=== PATIENT | female | born 1935 | race Caucasian/White ===

== ENCOUNTER 2019-01-09 14:19 | Observation (INO) | payer MEDICARE, OTHER ==
[~2019-01-09] VITALS: Ht 160 cm; Wt 89.8 kg
[~2019-01-09 14:19] MED LIST: ULTRAM50 MG PO; ZITHROMAX TRI-500 MG PO
--- OUTSIDE RECORDS SUMMARY | 2019-01-09 14:22 | XMS REPORT | Continuity of Care Document ---
Author Author [facility] Interface Address Unknown Phone Unavailable Problems Problem Status Onset Date Classification Date Reported Comments Source R06.02 Active 08/13/2017 [facility] CHEST PAIN Active 04/08/2017 [facility] ACUTE CHEST PAIN Active 04/08/2017 [facility] 726.72 TENDINITIS, TIBIALIS Active 04/16/2015 [facility] Hyperlipidemia Resolved Problem 08/16/2017 [facility] Hypothyroidism Resolved Problem 08/16/2017 [facility] Lung cancer<sup>1</sup> Resolved Problem 08/16/2017 [facility] Depression Resolved Problem 08/16/2017 [facility] TIBIALIS TENDINITIS Active [facility] CHEST PAIN, UNSPECIFIED Active [facility] SHORTNESS OF BREATH Active [facility] Medications Medication Details Route Status Patient Instructions Ordering Provider Order Date Source multivitamin with minerals 1 tab, Route: PO, Drug Form: TAB, Dosing Weight 89.545, kg, Daily, Start date: 04/09/17 9:00:00 CDT, Duration: 30 day, Stop date: 05/08/17 9:00:00 CDTNotes: (Same as:Thera-M, Theragran-M) WASTE: F/P - Black; E - Municipal Trash Bin Give with food. Inactive 04/09/2017 [facility] Cymbalta 60 mg, 2 cap, Route: PO, Drug form: DRC, Daily, Dosing Weight 89.545, kg, Start date: 04/09/17 9:00:00 CDT, Duration: 30 day, Stop date: 05/08/17 9:00:00 CDTNotes: (Same as: Cymbalta) (Do Not Crush) Inactive 04/09/2017 [facility] Thyroxine 150 microgram, 1 tab, Route: PO, Drug form: TAB, Q630AM, Dosing Weight 89.545, kg, Start date: 04/09/17 6:30:00 CDT, Duration: 30 day, Stop date: 05/08/17 6:30:00 CDTNotes: Take 1 hour before or 2 hours after meal; Enteral feeds may interefere with the absorption of this medication. (Same as: Levothroid) Inactive 04/09/2017 [facility] atorvastatin 20 mg, 2 tab, Route: PO, Drug form: TAB, Bedtime, Dosing Weight 89.545, kg, Start date: 04/08/17 21:00:00 CDT, Duration: 30 day, Stop date: 05/07/17 21:00:00 CDTNotes: (Same As: Lipitor) No Longer Active 04/09/2017 [facility] Saline Flush 0.9% 10 ml, Route: IVP, Drug Form: INJ, Dosing Weight 89.545, kg, Q12H, Start date: 04/08/17 21:00:00 CDT, Duration: 30 day, Stop date: 05/08/17 9:00:00 CDTNotes: (Same as: BD Posiflush) No Longer Active 04/09/2017 [facility] multivitamin with minerals 1 tab, PO, Daily, 0 Refill(s) Active 04/08/2017 [facility] aspirin 81 mg tablet, enteric coated 81 mg=1 tab, PO, Daily, # 90 tab, 3 Refill(s) Active 04/08/2017 [facility] Ventolin HFA 90 mcg/inh inhalation aerosol with adapter 2 puff, Route: INHALATION, Drug Form: AERO/A, Dosing Weight 89.545, kg, QID, PRN Wheezing, Start date: 04/08/17 18:01:00 CDT, Duration: 30 day, Stop date: 05/08/17 18:00:00 CDTNotes: Same as: Ventolin HFA WASTE: Aerosol - Return to Pharmacy No Longer Active 04/08/2017 [facility] Saline Flush 0.9% 10 ml, Route: IVP, Drug Form: INJ, Dosing Weight 89.545, kg, PRN, PRN Line Flush, Start date: 04/08/17 17:35:00 CDT, Duration: 30 day, Stop date: 05/08/17 17:34:00 CDT Inactive 04/08/2017 [facility] Nitroglycerin 0.4 mg, 1 tab, Route: SL, Drug form: TAB, Q5Min, Dosing Weight 89.545, kg, PRN Chest Pain, Start date: 04/08/17 17:35:00 CDT, Duration: 3 doses or times, Stop date: Limited # of timesNotes: (Same as: Nitroquick, Nitrostat) "Do Not Crush" Sublingual tablet No Longer Active 04/08/2017 [facility] Ventolin HFA 90 mcg/inh inhalation aerosol with adapter 2 puff, INHALATION, QID, PRN as needed for wheezing, 0 Refill(s) Active 04/08/2017 [facility] multivitamin with minerals 1 tab, PO, Daily, 0 Refill(s) Inactive 04/08/2017 [facility] multivitamin with minerals 1 tab, PO, Daily, 0 Refill(s) Inactive 04/08/2017 [facility] levothyroxine 150 mcg (0.15 mg) oral tablet 150 microgram=1 tab, PO, Daily, 0 Refill(s) Active 04/08/2017 [facility] Beclomethasone Dipropionate 0.08 MG/ACTUAT Metered Dose Nasal [place] [Qnasl] 2 spray, NASAL, Daily, 0 Refill(s) Inactive 04/08/2017 [facility] duloxetine 60 MG Enteric Coated Capsule [Cymbalta] 60 mg=1 cap, PO, Daily, 0 Refill(s) Active 04/08/2017 [facility] atorvastatin 20 mg oral tablet 20 mg=1 tab, PO, Bedtime, 0 Refill(s) Active 04/08/2017 [facility] Hydralazine 10 mg, 0.5 mL, Route: IV, Drug form: INJ, ONCE, Dosing Weight 89.545, kg, Start date: 04/08/17 13:53:00 CDT, Stop date: 04/08/17 13:53:00 CDTNotes: (Same as: Apresoline) Push over 5 minutes Inactive 04/08/2017 [facility] Saline Flush 0.9% 10 mL, Route: IVP, Drug Form: INJ, Dosing Weight 89.545, kg, PRN, PRN Line Flush, Start date: 04/08/17 13:08:00 CDT, Duration: 30 day, Stop date: 05/08/17 13:07:00 CDTNotes: (Same as: BD Posiflush) Inactive 04/08/2017 [facility] Allergies, Adverse Reactions, Alerts Substance Category Reaction Severity Reaction type Status Date Reported Comments Source morphine Assertion Drug allergy Active [facility] sulfa drugs Assertion Drug allergy Active [facility] Immunizations Immunization Date Given Site Status Last Updated Comments Source Results Order Name Results Value Reference Range Date Interpretation Comments Source Chest 2 views DX Chest 2 views DX Clinical Indication: - R06.02 Shortness of breath Comparison: 04/08/2017 FINDINGS: PA and lateral views the chest are submitted for interpretation. Postsurgical changes are noted in the right lung. The lungs are otherwise clear and there are no effusions. There is no visible pneumothorax. There is mild eventration of the posterior right. The cardiomediastinal contours are otherwise within normal limits. There are no clinically significant osseous abnormalities noted. IMPRESSION: 1. No radiographic evidence of acute cardiopulmonary process. SL: [id number] 08/13/2017 - - Read by: Edgar Martin MD Dictated Date/time: 08/13/17 10:21 Electronically Signed by: Edgar Martin MD 08/13/17 10:25 FINAL REPORT [facility] CARDIAC ENZYMES Troponin-I null 0.00 - 0.40 04/09/2017 [facility] CARDIAC ENZYMES Total CK 59 unit/L 12 - 191 04/09/2017 [facility] CARDIAC ENZYMES CK MB 1.6 ng/mL 0.5 - 3.6 04/09/2017 [facility] CARDIAC ENZYMES Troponin-I null 0.00 - 0.40 04/08/2017 [facility] CARDIAC ENZYMES Total CK 60 unit/L 12 - 191 04/08/2017 [facility] CARDIAC ENZYMES CK MB 2.0 ng/mL 0.5 - 3.6 04/08/2017 [facility] CARDIAC ENZYMES CK MB 2.3 ng/mL 0.5 - 3.6 04/08/2017 [facility] CARDIAC ENZYMES Troponin-I null 0.00 - 0.40 04/08/2017 [facility] CARDIAC ENZYMES Total CK 81 unit/L 12 - 191 04/08/2017 [facility] CARDIAC ENZYMES BNP 233 pg/mL <=100 pg/mL 04/08/2017 [facility] CARDIAC ENZYMES CK MB Index 2.8 0.0 - 2.5 04/08/2017 [facility] CHEM PANEL A/G Ratio 0.9 0.7 - 1.6 04/08/2017 [facility] CHEM PANEL eGFR 85 mL/min/1.73m2 04/08/2017 Result Comment: The eGFR is calculated using the CKD-EPI formula. In most young, healthy individuals the eGFR will be >90 mL/min/1.73m2. The eGFR declines with age. An eGFR of 60-89 may be normal in some populations, particularly the elderly, for whom the CKD-EPI formula has not been extensively validated. Use of the eGFR is not recommended in the following populations: Individuals with unstable creatinine concentrations, including patients and those with serious co-morbid conditions. Patients with extremes in muscle mass or diet. The data above are obtained from the National Kidney Disease Education Program (NKDEP) which additionally recommends that when the eGFR is used in patients with extremes of body mass index for purposes of drug dosing, the eGFR should be multiplied by the estimated BMI. [facility] CHEM PANEL Globulin 3.5 g/dL 2.7 - 4.2 04/08/2017 [facility] CHEM PANEL B/C Ratio 36 6 - 25 04/08/2017 [facility] CHEM PANEL AGAP 10.7 meq/L 10.0 - 20.0 04/08/2017 [facility] CHEM PANEL Bili Total 0.5 mg/dL 0.2 - 1.3 04/08/2017 [facility] CHEM PANEL Chloride Lvl 104 meq/L 95 - 109 04/08/2017 [facility] CHEM PANEL Potassium Lvl 4.7 meq/L 3.5 - 5.1 04/08/2017 [facility] CHEM PANEL Sodium Lvl 140 meq/L 135 - 145 04/08/2017 [facility] CHEM PANEL Calcium Lvl 8.6 mg/dL 8.5 - 10.5 04/08/2017 [facility] CHEM PANEL CO2 30 meq/L 24 - 32 04/08/2017 [facility] CHEM PANEL ALT 21 unit/L 0 - 65 04/08/2017 [facility] CHEM PANEL Albumin Lvl 3.3 g/dL 3.5 - 5.0 04/08/2017 [facility]M PANEL Total Protein 6.8 g/dL 6.4 - 8.4 04/08/2017 [facility] CHEM PANEL Alk Phos 82 unit/L 39 - 136 04/08/2017 [facility] CHEM PANEL AST 21 unit/L 0 - 37 04/08/2017 [facility] CHEM PANEL Glucose Lvl 102 mg/dL 70 - 99 04/08/2017 [facility] CHEM PANEL BUN 21 mg/dL 7 - 22 04/08/2017 [facility] CHEM PANEL Creatinine Lvl 0.58 mg/dL 0.50 - 1.40 04/08/2017 [facility] RDW 14.3 % 11.5 - 14.5 04/08/2017 [facility] MCH 32.4 pg 27.0 - 31.0 04/08/2017 [facility] MCV 96.9 fL 80.0 - 98.0 04/08/2017 [facility] MPV 10.9 fL 7.4 - 10.4 04/08/2017 [facility] Platelet 130 K/CMM 133 - 450 04/08/2017 [facility] MCHC 33.4 g/dL 32.0 - 36.0 04/08/2017 [facility] WBC 7.6 K/CMM 3.7 - 10.4 04/08/2017 [facility] RBC 4.05 M/CMM 4.20 - 5.40 04/08/2017 [facility] Hgb 13.1 g/dL 12.0 - 16.0 04/08/2017 [facility] Hct 39.3 % 36.0 - 48.0 04/08/2017 [facility] Basophils 1.0 % 0.0 - 1.0 04/08/2017 [facility] Monocytes 11.1 % 2.0 - 12.0 04/08/2017 [facility] Eosinophils 1.2 % 0.0 - 4.0 04/08/2017 [facility] Lymphocytes 22.9 % 20.0 - 40.0 04/08/2017 [facility] Segs 63.8 % 45.0 - 75.0 04/08/2017 [facility] Lymphocytes # 1.7 K/CMM 1.0 - 5.5 04/08/2017 [facility] Monocytes # 0.8 K/CMM 0.0 - 0.8 04/08/2017 [facility] Eosinophils # 0.1 K/CMM 0.0 - 0.5 04/08/2017 [facility] Segs-Bands # 4.8 K/CMM 1.5 - 8.1 04/08/2017 [facility] Basophils # 0.1 K/CMM 0.0 - 0.2 04/08/2017 [facility] Chest 1view DX Chest 1view DX 1 VIEW CXR. PORTABLE EXAM 1:32 PM HISTORY: Chest pain this morning. Hypertensive. COMPARISON: 01/08/2008 chest x-ray. Patient has undergone chest surgery in the interval from the 2008 exam. The increased right apical and paramediastinal opacity noted today most likely reflects postoperative changes. Associated small amount of right hemithorax volume loss. The lungs are otherwise clear. Cardiac size normal. Bones intact with stable sclerotic opacity left humeral neck and head. IMPRESSION: Postoperative changes right apex and upper paramediastinal region. Otherwise normal exam. END OF IMPRESSION SL: [id number] 04/08/2017 - - Read by: Brock Martinez MD Dictated Date/time: 04/08/17 14:04 Electronically Signed by: Brock Martinez MD 04/08/17 14:06 FINAL REPORT [facility] Bone scan 3 phase NM Bone scan 3 phase NM Three-phase Bone Scan. COMPARISON: No priors CLINICAL HX: Tendinitis TECHNIQUE: 25 mCi of Technetium 99m MDP were administered intravenously and 3 phase bone scan performed. FINDINGS: The initial flow images and the blood pool images demonstrate relatively symmetric flow in both lower extremities in the region of the knees, ankle and foot. On the delayed images, no significant increase in tracer activity is visualized at the left knee. Post operative changes related to complete knee replacement are noted There is mild nonspecific increase in tracer activity noted in the region of right ankle and hindfoot. SL:13 04/21/2015 - - Read by: Ajay Kruger MD Dictated Date/time: 04/21/15 14:05 Electronically Signed by: Ajay Kruger MD 04/21/15 14:16 FINAL REPORT [facility] Vital Signs Vital Sign Value Date Comments Source Systolic (mm Hg) 147 04/09/2017 [facility] Diastolic (mm Hg) 69 04/09/2017 [facility] Respitory Rate 18 04/09/2017 [facility] Heart Rate 90 04/09/2017 [facility] Temperature Oral (F) 98.2 F 04/09/2017 [facility] Respitory Rate 19 04/08/2017 [facility] Temperature Oral (F) 97.8 F 04/08/2017 [facility] Systolic (mm Hg) 175 04/08/2017 [facility] Diastolic (mm Hg) 63 04/08/2017 [facility] Heart Rate 85 04/08/2017 [facility] Respitory Rate 18 04/08/2017 [facility] Systolic (mm Hg) 179 04/08/2017 [facility] Diastolic (mm Hg) 69 04/08/2017 [facility] BMI Calculated 33.89 04/08/2017 [facility] Height 162.56 cm 04/08/2017 [facility] Temperature Oral (F) 98.0 F 04/08/2017 [facility] Weight 89.545 04/08/2017 [facility] Heart Rate 72 04/08/2017 [facility] Encounters Location Location Details Encounter Type Encounter Number Reason For Visit Attending Provider ADM Date DC Date Status Source [facility] Out[facility] [id number] Harshad Mcqueen 04/21/2015 04/22/2015 [facility] Observation [id number] Ethan Bradley 04/08/2017 04/09/2017 [facility] Outpatient [id number] Albert Garcia 08/13/2017 08/13/2017 [facility] Outpatient [id number] Albert Garcia 08/13/2017 08/14/2017 [facility] Procedures Procedure Code Date Perfomer Comments Source Hysterectomy [id number] [facility] Lung operation [id number] [facility] Total knee replacement<sup>1</sup> [id number] Lt. Knee [facility]
--- OUTSIDE RECORDS SUMMARY | 2019-01-09 14:22 | XMS REPORT | Summary of Care ---
Author Author [facility] Organization [facility] Address Unknown Phone Unavailable Encounter HQ Rosalba(MIRELLA) [id number] Date(s): 04/08/17 - 04/08/17 [facility] [address] [place] [address]- [phone] Discharge Disposition: Home or Self Care Attending Physician: Ethan Bradley MD Admitting Physician: Ethan Bradley MD Vital Signs 1 2 3 Most recent to oldest [Reference Range]: 162.56 cm (04/08/17 1:01 PM) Height 98.2 DegF (04/08/17 8:07 PM) 97.8 DegF (04/08/17 4:22 PM) 98.0 DegF (04/08/17 1:01 PM) Temperature Oral [96.4-99.1 DegF] 147/69 mmHg *HI* (04/08/17 8:07 PM) 175/63 mmHg *HI* (04/08/17 4:22 PM) 179/69 mmHg *HI* (04/08/17 3:20 PM) Blood Pressure [90-140/60-90 mmHg] 18 BRMIN (04/08/17 8:07 PM) 19 BRMIN (04/08/17 4:22 PM) 18 BRMIN (04/08/17 3:20 PM) Respiratory Rate [14-20 BRMIN] 90 bpm (04/08/17 8:07 PM) 85 bpm (04/08/17 4:22 PM) 72 bpm (04/08/17 1:01 PM) Peripheral Pulse Rate [60-100 bpm] 89.545 kg (04/08/17 1:01 PM) Weight 33.89 m2 (04/08/17 1:01 PM) Body Mass Index Problem List Condition Effective Dates Status Health Status Informant Hyperlipidemia(Confi Resolved rmed) Hypothyroidism(Confi Resolved rmed) Lung Resolved cancer(Confirmed)1 Depression(Confirmed Resolved ) 1Rt. Lung Allergies, Adverse Reactions, Alerts Substance Reaction Severity Status NKDA Active Medications aspirin 81 mg tablet, enteric coated 81 mg=1 tab, PO, Daily, # 90 tab, 3 Refill(s) Start Date: 04/08/17 Status: Ordered atorvastatin 20 mg, 2 tab, Route: PO, Drug form: TAB, Bedtime, Dosing Weight 89.545, kg, Star t date: 04/08/17 21:00:00 CDT, Duration: 30 day, Stop date: 05/07/17 21:00:00 CD T Notes: (Same As: Lipitor) Start Date: 04/08/17 Stop Date: 04/09/17 Status: Discontinued atorvastatin 20 mg oral tablet 20 mg=1 tab, PO, Bedtime, 0 Refill(s) Start Date: 04/08/17 Status: Ordered Cymbalta 60 mg, 2 cap, Route: PO, Drug form: DRC, Daily, Dosing Weight 89.545, kg, Start date: 04/09/17 9:00:00 CDT, Duration: 30 day, Stop date: 05/08/17 9:00:00 CDT Notes: (Same as: Cymbalta) (Do Not Crush) Start Date: 04/09/17 Stop Date: 04/09/17 Status: Canceled Cymbalta 60 mg oral delayed release capsule 60 mg=1 cap, PO, Daily, 0 Refill(s) Start Date: 04/08/17 Status: Ordered hydrALAZINE 10 mg, 0.5 mL, Route: IV, Drug form: INJ, ONCE, Dosing Weight 89.545, kg, Start date: 04/08/17 13:53:00 CDT, Stop date: 04/08/17 13:53:00 CDT Notes: (Same as: Apresoline)Push over 5 minutes Start Date: 04/08/17 Stop Date: 04/08/17 Status: Completed levothyroxine 150 microgram, 1 tab, Route: PO, Drug form: TAB, Q630AM, Dosing Weight 89.545, k g, Start date: 04/09/17 6:30:00 CDT, Duration: 30 day, Stop date: 05/08/17 6:30: 00 CDT Notes: Take 1 hour before or 2 hours after meal; Enteral feeds may interefere wi th the absorption of this medication. (Same as: Levothroid) Start Date: 04/09/17 Stop Date: 04/09/17 Status: Canceled levothyroxine 150 mcg (0.15 mg) oral tablet 150 microgram=1 tab, PO, Daily, 0 Refill(s) Start Date: 04/08/17 Status: Ordered multivitamin with minerals 1 tab, PO, Daily, 0 Refill(s) Start Date: 04/08/17 Stop Date: 04/08/17 Status: Discontinued multivitamin with minerals 1 tab, PO, Daily, 0 Refill(s) Start Date: 04/08/17 Stop Date: 04/08/17 Status: Discontinued multivitamin with minerals 1 tab, Route: PO, Drug Form: TAB, Dosing Weight 89.545, kg, Daily, Start date: 0 04/09/17 9:00:00 CDT, Duration: 30 day, Stop date: 05/08/17 9:00:00 CDT Notes: (Same as:Mariana-M Therabdias-M)WASTE: F/P - Black; E - Municipal Trash Bin Give with food. Start Date: 04/09/17 Stop Date: 04/09/17 Status: Canceled multivitamin with minerals 1 tab, PO, Daily, 0 Refill(s) Start Date: 04/08/17 Status: Ordered nitroglycerin SL Tab 0.4 mg, 1 tab, Route: SL, Drug form: TAB, Q5Min, Dosing Weight 89.545, kg, PRN C hest Pain, Start date: 04/08/17 17:35:00 CDT, Duration: 3 doses or times, Stop d ate: Limited # of times Notes: (Same as:Nitroquick, Nitrostat)"Do Not Crush" Sublingual tablet Start Date: 04/08/17 Stop Date: 04/09/17 Status: Discontinued Qnasl 80 mcg/inh nasal spray 2 spray, NASAL, Daily, 0 Refill(s) Start Date: 04/08/17 Stop Date: 04/08/17 Status: Discontinued Saline Flush 0.9% 10 mL, Route: IVP, Drug Form: INJ, Dosing Weight 89.545, kg, PRN, PRN Line Flush , Start date: 04/08/17 13:08:00 CDT, Duration: 30 day, Stop date: 05/08/17 13:07 :00 CDT Notes: (Same as: BD Posiflush) Start Date: 04/08/17 Stop Date: 04/08/17 Status: Discontinued Saline Flush 0.9% 10 ml, Route: IVP, Drug Form: INJ, Dosing Weight 89.545, kg, PRN, PRN Line Flush , Start date: 04/08/17 17:35:00 CDT, Duration: 30 day, Stop date: 05/08/17 17:34 :00 CDT Start Date: 04/08/17 Stop Date: 04/08/17 Status: Deleted Saline Flush 0.9% 10 ml, Route: IVP, Drug Form: INJ, Dosing Weight 89.545, kg, Q12H, Start date: 0 04/08/17 21:00:00 CDT, Duration: 30 day, Stop date: 05/08/17 9:00:00 CDT Notes: (Same as: BD Posiflush) Start Date: 04/08/17 Stop Date: 04/09/17 Status: Discontinued Ventolin HFA 90 mcg/inh inhalation aerosol with adapter 2 puff, Route: INHALATION, Drug Form: AERO/A, Dosing Weight 89.545, kg, QID, PRN Wheezing, Start date: 04/08/17 18:01:00 CDT, Duration: 30 day, Stop date: 05/08 18:00:00 CDT Notes: Same as: Ventolin HFAWASTE: Aerosol - Return to Pharmacy Start Date: 04/08/17 Stop Date: 04/09/17 Status: Discontinued Ventolin HFA 90 mcg/inh inhalation aerosol with adapter 2 puff, INHALATION, QID, PRN as needed for wheezing, 0 Refill(s) Start Date: 04/08/17 Status: Ordered Results ELECTROLYTES 1 2 3 Most recent to oldest [Reference Range]: 140 mEq/L (04/08/17 1:31 PM) Sodium Lvl [135-145 mEq/L] 4.7 mEq/L (04/08/17 1:31 PM) Potassium Lvl [3.5-5.1 mEq/L] 104 mEq/L (04/08/17 1:31 PM) Chloride Lvl [95-109 mEq/L] 30 mEq/L (04/08/17 1:31 PM) CO2 [24-32 mEq/L] 10.7 mEq/L (04/08/17 1:31 PM) AGAP [10.0-20.0 mEq/L] CHEM PANEL 1 2 3 Most recent to oldest [Reference Range]: 0.58 mg/dL (04/08/17 1:31 PM) Creatinine Lvl [0.50-1.40 mg/dL] 85 mL/min/1.73m2 1 *NA* (04/08/17 1:31 PM) eGFR 21 mg/dL (04/08/17 1:31 PM) BUN [7-22 mg/dL] 36 *HI* (04/08/17 1:31 PM) B/C Ratio [6-25] 102 mg/dL *HI* (04/08/17 1:31 PM) Glucose Lvl [70-99 mg/dL] 6.8 g/dL (04/08/17 1:31 PM) Total Protein [6.4-8.4 g/dL] 3.3 g/dL *LOW* (04/08/17 1:31 PM) Albumin Lvl [3.5-5.0 g/dL] 3.5 g/dL (04/08/17 1:31 PM) Globulin [2.7-4.2 g/dL] 0.9 (04/08/17 1:31 PM) A/G Ratio [0.7-1.6] 8.6 mg/dL (04/08/17 1:31 PM) Calcium Lvl [8.5-10.5 mg/dL] 21 unit/L (04/08/17 1:31 PM) ALT [0-65 unit/L] 21 unit/L (04/08/17 1:31 PM) AST [0-37 unit/L] 82 unit/L (04/08/17 1:31 PM) Alk Phos [39-136 unit/L] 0.5 mg/dL (04/08/17 1:31 PM) Bili Total [0.2-1.3 mg/dL] 1Result Comment: The eGFR is calculated using the [...] from the National Kidney Disease Education Program ( NKDEP) which additionally recommends that when the eGFR is used in patients with extremes of body mass index for purposes of drug dosing, the eGFR should be mul tiplied by the estimated BMI. CARDIAC ENZYMES 1 2 3 Most recent to oldest [Reference Range]: 59 unit/L (04/08/17 10:05 PM) 60 unit/L (04/08/17 6:13 PM) 81 unit/L (04/08/17 1:31 PM) Total CK [12-191 unit/L] 1.6 ng/mL (04/08/17 10:05 PM) 2.0 ng/mL (04/08/17 6:13 PM) 2.3 ng/mL (04/08/17 1:31 PM) CK MB [0.5-3.6 ng/mL] 2.8 *HI* (04/08/17 1:31 PM) CK MB Index [0.0-2.5] <0.02 ng/mL (04/08/17 10:05 PM) <0.02 ng/mL (04/08/17 6:13 PM) <0.02 ng/mL (04/08/17 1:31 PM) Troponin-I [0.00-0.40 ng/mL] 233 pg/mL *HI* (04/08/17 1:31 PM) BNP [<=100 pg/mL] HEMATOLOGY 1 2 3 Most recent to oldest [Reference Range]: 7.6 K/CMM (04/08/17 1:31 PM) WBC [3.7-10.4 K/CMM] 4.05 M/CMM *LOW* (04/08/17 1:31 PM) RBC [4.20-5.40 M/CMM] 13.1 g/dL (04/08/17 1:31 PM) Hgb [12.0-16.0 g/dL] 39.3 % (04/08/17 1:31 PM) Hct [36.0-48.0 %] 96.9 fL (04/08/17 1:31 PM) MCV [80.0-98.0 fL] 32.4 pg *HI* (04/08/17 1:31 PM) MCH [27.0-31.0 pg] 33.4 g/dL (04/08/17 1:31 PM) MCHC [32.0-36.0 g/dL] 14.3 % (04/08/17 1:31 PM) RDW [11.5-14.5 %] 130 K/CMM *LOW* (04/08/17 1:31 PM) Platelet [133-450 K/CMM] 10.9 fL *HI* (04/08/17 1:31 PM) MPV [7.4-10.4 fL] 63.8 % (04/08/17 1:31 PM) Segs [45.0-75.0 %] 22.9 % (04/08/17 1:31 PM) Lymphocytes [20.0-40.0 %] 11.1 % (04/08/17 1:31 PM) Monocytes [2.0-12.0 %] 1.2 % (04/08/17 1:31 PM) Eosinophils [0.0-4.0 %] 1.0 % (04/08/17 1:31 PM) Basophils [0.0-1.0 %] 4.8 K/CMM (04/08/17 1:31 PM) Segs-Bands # [1.5-8.1 K/CMM] 1.7 K/CMM (04/08/17 1:31 PM) Lymphocytes # [1.0-5.5 K/CMM] 0.8 K/CMM (04/08/17 1:31 PM) Monocytes # [0.0-0.8 K/CMM] 0.1 K/CMM (04/08/17 1:31 PM) Eosinophils # [0.0-0.5 K/CMM] 0.1 K/CMM (04/08/17 1:31 PM) Basophils # [0.0-0.2 K/CMM] Immunizations No data available for this section Procedures Procedure Date Related Diagnosis Body Site Hysterectomy Lung operation Total knee replacement1 1Lt. Knee Social History Social History Type Response Smoking Status Former smoker; Type: Cigarettes; Exposure to Tobacco Smoke None; Cigarette Smoking Last 365 Days No; Reg Smoking Cessation Counseling No Assessment and Plan Extracted from: Title: Clinical Document Author: Ethan Bradley MD Date: 04/08/17 [facility] Initial Cardiology H&P Note Chief Complaint: cp HPI: 82-year-old female with history of right lung cancer status post resection, hyperlipidemia, hypothyroidism, who comes to the hospital with chest pain. The pain lasted for 1 hour at home while she was playing a game on her computer. She currently has no chest pain right now. She was seen by her PCP over a week ago who said that she had plaque buildup and should make an appointment with her commercial litigation paralegal. Her first set of cardiac enzymes are normal in the ER. When she came to the ER her blood pressure was elevated up to 215 systolic. However family says she was wearing of a very tight blood pressure cuff at the time in the ER. Normally her blood pressures around 120s systolic at home. She does not take any blood pressure medication at home. In regards to her plaque buildup, it appears that she had a CT scan for surveillance of her lung cancer. It was possibly seen as coronary artery calcification on the CT scan. She has never had a stress test or echo done in the past. She has no exertional chest pain or shortness of breath. She is normally very active and likes to live independently. She drives back and forth from [place]. Regards her chest pain, she said it was a burning acid reflex type of pain which was happening while she was playing a can game on her computer. It lasted for about 1 hour and then went away. She was little concerned given she was told she had plaque buildup so she came to the ER here. She was given aspirin prior to arrival so no aspirin was given in the ER. She does not take aspirin on a daily basis. At home patient takes Lipitor 20 and Synthroid. REVIEW OF SYSTEMS: CONSTITUTIONAL: No fever. No chills. No dizziness. No weakness. EYES: No pain, erythema, or discharge. No blurring of vision. EAR, NOSE AND THROAT: No sore throat, URI symptoms. No epistaxis. No tinnitus. CARDIOVASCULAR: + chest pain. No palpitations. No lower extremity edema. RESPIRATORY: No shortness of breath, cough, pain with respiration, or pleuritic chest pain. No hemoptysis. No dyspnea. No paroxysmal nocturnal dyspnea. GASTROINTESTINAL: Normal appetite. No nausea, vomiting, diarrhea. No pain. No bloating. No melena. GENITOURINARY: No frequency, urgency, nocturia. No hematuria or dysuria. MUSCULOSKELETAL: No arthralgias or myalgias. INTEGUMENTARY: No swelling. No bruising. No contusions. No abrasions. No lymphangitis. NEUROLOGIC: No headache. No neck pain. No numbness or tingling of the extremities. No weakness. PSYCHIATRIC: No confusion. METABOLIC: No fatigue. No weakness. No history of thyroid, diabetes or adrenal problems. HEMATOLOGICAL: No bleeding. No petechiae. No bruising. ALLERGY: No asthma. No urticaria. PAST MEDICAL HISTORY: Lung cancer Hypothyroidism Depression Hyperlipidemia PAST SURGICAL HISTORY: Lung operation Hysterectomy Total knee replacement FAMILY HISTORY: No qualifying data available SOCIAL HISTORY: No tobacco, alcohol, or drug abuse MEDICATIONS: See inpatient medications below Allergies: NKDA VitalsTmp(F)[id number] 04/08 16:[id number]--- 04/08 15:20----[id number]--- 04/08 15:16----[id number]--- 04/08 14:59----[id number]--- 04/08 13:23----[id number]--- 24 Hr Tmax: 98.0F (36.67c) at 04/08 13:01Vital Signs are the last 5 in the past 48 hours. Gen: Alert, no apparent distress Neck: No carotid bruits, No JVD Lungs: CTAB Heart: Regular, s1 s2, +murmur Abd: Soft, nt, nd, +bs Ext: No edema, 2+ pulses distally Neuro: No focal deficits Skin: warm, moist Labs (Last four charted values) WBC 7.6(APR 08) Hgb 13.1(APR 08) Hct 39.3(APR 08) Plt L 130(APR 08) Na 140(APR 08) K 4.7(APR 08) CO2 30(APR 08) Cl 104(APR 08) Cr 0.58(APR 08) BUN 21(APR 08) Glucose Random H 102(APR 08) Ca 8.6(APR 08) Troponin <0.02(APR 08) CK MB 2.3(APR 08) Total CK 81(APR 08) Impression: Atypical chest pain Hyperlipidemia History of lung cancer Abnormal EKG Plan: Patient presents for hospital with atypical chest pain. However given her age, history of hyperlipidemia, female gender, and atypical symptoms, she does warrant further blood test in the hospital here. She will get 2 more sets of cardiac enzymes. If the 3 sets are normal, she can go home from a cardiology standpoint. A stress test was offered for the patient however she prefers to do it as an outpatient. We will get the stress test scheduled within the next 2 days in my office. She will need a Lexiscan nuclear stress test since the patient cannot go on a treadmill due to knee issues. An echocardiogram will also be performed in the office since she does have a murmur on exam. The plan discussed in detail with the patient. He was also discussed with her family. All questions were answered. She is in agreement the plan. 55 minutes was spent taking care of this patient and reviewing the chart as well as discussing the plan of care with the patient. Continuous Infusions: None Scheduled Meds (1): 04/08/17 sodium chloride (Saline Flush 0.9%) 10 ml IVP Q12H
--- OUTSIDE RECORDS SUMMARY | 2019-01-09 14:22 | XMS REPORT | Summary of Care ---
Author Author [facility] Organization [facility] Address Unknown Phone Unavailable Encounter HQ Rosalba(MIRELLA) [id number] Date(s): 08/13/17 - 08/13/17 [facility] [address] [place] [address]- Discharge Disposition: Home or Self Care Attending Physician: Albert Garcia MD Admitting Physician: Albert Garcia MD Vital Signs No data available for this section Problem List Condition Effective Dates Status Health Status Informant Hyperlipidemia(Confi Resolved rmed) Hypothyroidism(Confi Resolved rmed) Lung Resolved cancer(Confirmed)1 Depression(Confirmed Resolved ) 1Rt. Lung Allergies, Adverse Reactions, Alerts Substance Reaction Severity Status NKDA Active Medications No data available for this section Results No data available for this section Immunizations No data available for this section Procedures Procedure Date Related Diagnosis Body Site Hysterectomy Lung operation Total knee replacement1 1Lt. Knee Social History Social History Type Response Smoking Status Former smoker; Type: Cigarettes; Exposure to Tobacco Smoke None; Cigarette Smoking Last 365 Days No; Reg Smoking Cessation Counseling No Assessment and Plan No data available for this section
--- OUTSIDE RECORDS SUMMARY | 2019-01-09 14:22 | XMS REPORT | Summary of Care ---
Author Author [facility] Organization [facility] Address Unknown Phone Unavailable Encounter HQ Encntr_alias(FIN) [id number] Date(s): 04/21/15 - 04/21/15 [facility] [address] [place] [address]- Discharge Disposition: Home Attending Physician: Harshad Mcqueen MD Referring Physician: Harshad Mcqueen MD Vital Signs No data available for this section Problem List No data available for this section Allergies, Adverse Reactions, Alerts Substance Reaction Severity Status morphine Active sulfa drugs Active Medications No data available for this section Results No data available for this section Immunizations No data available for this section Procedures No data available for this section Social History Social History Type Response Assessment and Plan No data available for this section
--- OUTSIDE RECORDS SUMMARY | 2019-01-09 14:22 | XMS REPORT | Summary of Care ---
Author Author [facility] Organization [facility] Address Unknown Phone Unavailable Encounter HQ Rosalba(FIN) [id number] Date(s): 08/13/17 - 08/13/17 [facility] [address] [place] [address]- [phone] Attending Physician: Albert Garcia MD Admitting Physician: [...]
--- OUTSIDE RECORDS SUMMARY | 2019-01-09 14:22 | XMS REPORT | Clinical Summary ---
Author Author [facility] Organization [facility] Address Unknown Phone Unavailable Care Team Providers Care Planning Consultant Name Role Phone Hank Martin MD PCP Allergies Not on File Medications Not on file Active Problems Not on file Social History Date Tobacco Use Types Packs/Day Years Used Never Assessed Sex Assigned at Date Recorded Not on file Industry Job Start Date Occupation Not on file Not on file Not on file Travel End Travel History Travel Start No recent travel history available. Last Filed Vital Signs Not on file Plan of Treatment Health Maintenance Due Date Last Done Comments SHINGLES VACCINES (#1) 1983 65+ PNEUMOCOCCAL VACCINE 1998 (1 of 2 - PCV13) PNEUMOCOCCAL 1998 POLYSACCHARIDE VACCINE AGE 65 AND OVER INFLUENZA VACCINE 04/24/2019 Results Not on fileafter 01/08/2018 Insurance Payer Benefit Subscriber ID Type Phone Address Plan / Group MEDICARE MEDICARE xxxxxxxxxx Medicare [place], [place] PART A AND B HUMANA HUMANA xxxxxxxxx PPO CHOICE CARE PPO Advance Directives Patient has advance care planning documents on file. For more information, sandra e contact: Aron Li [address] [place] [address]
--- NOTE | 2019-01-09 16:23 | Diagnostic Imaging Report ---
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 TECHNIQUE: Multidetector axial images were obtained without contrast from the foramen magnum to the vertex . The images were reconstructed using brain and bone algorithms. Thin section brain images were reformatted into coronal and sagittal planes. Image quality: Motion/streaking artifact limits the evaluation of the skull base and posterior cranial fossa. Dose modulation, iterative reconstruction, and/or weight based adjustment of the mA/kV was utilized to reduce the radiation dose to as low as reasonably achievable. FINDINGS: Parenchyma: 1. Scattered and moderate confluent periventricular white matter hypodensities, most likely nonspecific chronic microvascular ischemic changes. 2. 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 3. No mass or hemorrhage. No CT evidence of acute territorial vascular insult. Extra-axial spaces:No abnormal density. No extra-axial fluid collections Brain volume: Normal for age. Ventricles: No hydrocephalus or displacement. Arteries: No density suggestive of thrombus. Dural sinuses: No abnormal density. Extra-axial spaces: No abnormal density. Foramen magnum: No mass, Chiari malformation, or basilar invagination. Sella: No obvious mass. Paranasal/mastoid sinuses: Imaged portions unremarkable. Skull/Scalp: No lytic or blastic lesions. No fractures. IMPRESSION: 1. No acute intracranial abnormalities. 2. Moderate chronic microvascular ischemic changes as detailed above. If there is concern for acute superimposed ischemic infarct consider brain MRI for further evaluation. Signed by: Dr. Yue Altman M.D. on 01/09/2019 4:20 PM
--- NOTE | 2019-01-09 18:39 | Diagnostic Imaging Report ---
Examination: Single AP view of the chest. COMPARISON: None. INDICATION: Double vision DISCUSSION: Lines/tubes: None. Lungs: The lungs are well inflated and clear. No pneumonia or pulmonary edema. Pleura: No pleural effusion or pneumothorax. Heart and mediastinum: The heart and the mediastinum are unremarkable. Bones and soft tissues: No acute bony abnormalities. Postsurgical changes. IMPRESSION: 1. No acute cardiopulmonary abnormalities. Signed by: Dr. Hank Abreu M.D. on 01/09/2019 6:36 PM
[2019-01-09 18:59] LABS: HEMATOCRIT 42.9 % (34.2-44.1); HEMOGLOBIN 13.9 g/dL (12.0-16.0); MEAN CORPUSCULAR VOLUME 97.3 fL (81-99); RED BLOOD COUNT 4.41 x10e6/uL (3.6-5.1)
[2019-01-09 19:00] LABS: LYMPHOCYTES % 1.6 % (18.0-39.1); MEAN CORPUSCULAR HEMOGLOBIN 31.5 pg (28-32); MEAN CORPUSCULAR HGB CONC 32.4 g/dL (31-35); MONOCYTES % 0.5 % (4.4-11.3); NEUTROPHILS % 5.6 % (38.7-80.0); PLATELET COUNT 181 x10e3/uL (140-360); RED CELL DISTRIBUTION WIDTH 13.5 % (11.7-14.4)
[2019-01-09 19:07] LABS: PROTHROMBIN TIME 12.6 seconds (11.9-14.5)
[2019-01-09 19:08] LABS: INR 0.9; PARTIAL THROMBOPLASTIN TIME 30.9 seconds (23.8-35.5)
[2019-01-09 19:20] LABS: BILIRUBIN,URINE NEGATIVE (NEGATIVE); CLARITY,URINE SL CLOUDY (CLEAR); COLOR,URINE YELLOW (YELLOW); KETONES,URINE TRACE (NEGATIVE); LEUKOCYTE ESTERASE ,URINE 2+ (NEGATIVE); NITRITE,URINE NEGATIVE (NEGATIVE); PROTEIN,URINE DIPSTICK NEGATIVE (NEGATIVE); URINE UROBILINOGEN 0.2 mg/dL (0.2 - 1)
[2019-01-09 19:22] LABS: ALANINE AMINOTRANSFERASE 18 IU/L (0-55); ALBUMIN/GLOBULIN RATIO 1.1 (0.8-2.0); ALKALINE PHOSPHATASE 98 IU/L (40-150); ANION GAP 15.1 mmol/L (8-16); BLOOD UREA NITROGEN 11 mg/dL (7-26); BUN/CREATININE RATIO 16 (6-25); CALCIUM 10.2 mg/dL (8.4-10.2); CARBON DIOXIDE 26 mmol/L (22-29); CHLORIDE 101 mmol/L (98-107); CREATINE KINASE 59 IU/L (29-168); CREATININE, SERUM 0.67 mg/dL (0.57-1.11); EST GLOMERULAR FILTRATION RATE > 60 ML/MIN (60-); GLUCOSE 109 mg/dL (74-118); MAGNESIUM 2.3 MG/DL (1.3-2.1); POTASSIUM 4.1 mmol/L (3.5-5.1); SODIUM 138 mmol/L (136-145)
[2019-01-09 19:30] LABS: BACTERIA,URINE MANY /HPF
[2019-01-09] MEDS ORDERED: HYDRALAZINE HCL 20 MG/ML VIAL IV PRN (20:00)
[2019-01-09] MEDS ORDERED: HYDRALAZINE HCL 20 MG/ML VIAL IV NR (20:15)
--- OUTSIDE RECORDS SUMMARY | 2019-01-09 20:23 | XMS REPORT | Clinical Summary ---
Author Author [facility] Address Unknown Phone Unavailable Care Team Providers Care Liquor Bridge Operator Helper Name Role Phone Hank Martin MD PCP [...] Plan / Group MEDICARE MEDICARE xxxxxxxxxx Medicare [place], [place] PART A AND B HUMANA HUMANA xxxxxxxxx PPO CHOICE CARE PPO Advance Directives Patient has advance care planning documents on file. For more information, sandra e contact: Aron Li [address] [place] [address]
--- OUTSIDE RECORDS SUMMARY | 2019-01-09 20:24 | XMS REPORT ---
[facility] Address Unknown Phone Unavailable Care Team Providers Care Floriculture Teacher Name Role Phone Hattie BEGUM Unavailable Unavailable Problems This patient has no known problems. Allergies, Adverse Reactions, Alerts This patient has no known allergies or adverse reactions. Medications This patient has no known medications. Results Test Description Test Time Test Comments Text Results Atomic Results Result Comments CHEST SINGLE (PORTABLE) 2019-01-09 18:35:00 [place] [address] Patient Name: MOE MADDEN MR #: [id number] : 1935 Age/Sex: 83/F Req #: [id number] Adm Physician: Ordered by: JENI LOPEZ LOGISTICS SUPPORT Report #: [id number] Location: ER Room/Bed: Procedure: [id number] DX/CHEST SINGLE (PORTABLE) Exam Date: 01/09/19 Exam Time: 182 REPORT STATUS: Signed Examination: Single AP view of the chest. COM PARISON: None. INDICATION: Double vision DISCUSSION: Lines/tubes: None. Lungs: The lungs are well inflated and clear. No pneumonia or pulmonary edema. Pleura: No pleural effusion or pneumothorax. Heart and mediastinum: The heart and the mediastinum are unremarkable. Bones and soft tissues: No acute bony abnormalities. Postsurgical changes. IMPRESSION: 1. No acute cardiopulmonary abnormalities. Signed by: Dr. Jessica Mckeon M.D. 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 TECHNIQUE: Multidetector axial images were obtained without contrast from the foramen magnum to the vertex . The images were reconstructed using brain and bone algorithms. Thin section brain images were reformatted into coronal and sagittal planes. Image quality: Motion/streaking artifact limits the evaluation of the skull base and posterior cranial fossa. Dose modulation, iterative reconstruction, and/or weight based adjustment of the mA/kV was utilized to reduce the radiation dose to as low as reasonably achievable. FINDINGS: Parenchyma: 1. Scattered and moderate confluent periventricular white matter hypodensities, most likely nonspecific chronic microvascular ischemic changes. 2. 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 3. No mass or hemorrhage. No CT evidence of acute territorial vascular insult. Extra- axial spaces:No abnormal density. No extra-axial fluid collections Brain volume: Normal for age. Ventricles: No hydrocephalus or displacement. Arteries: No density suggestive of thrombus. Dural sinuses: No abnormal density. Extra-axial spaces: No abnormal density. Foramen magnum: No mass, Chiari malformation, or basilar invagination. Sella: No obvious mass. Paranasal/mastoid sinuses: Imaged portions unremarkable. Skull/Scalp: No lytic or blastic lesions. No fractures. IMPRESSION: 1. No acute intracranial abnormalities. 2. Moderate chronic microvascular ischemic changes as detailed above. If there is concern for acute superimposed ischemic infarct consider brain MRI for further evaluation. Signed by: Dr. Janessa Altman M.D. on 01/09/2019 4:20 PM Dictated By: JANESSA ALTMAN MD 1620 Transcribed By: CUCO on 01/09/19 1620 COPY TO: JENI LOPEZ NP
--- NOTE | 2019-01-09 21:20 | NUR ---
Received report from ER nurse.
--- NOTE | 2019-01-09 21:24 | NUR ---
Patient arrived to floor via w/c.
[2019-01-09 22:00] VITALS: BP 149/69
[2019-01-09] MEDS: CEFDINIR 300 MG CAP PO SCH (22:00)
[2019-01-09 23:19] VITALS: BP 149/69
[2019-01-10 00:24] VITALS: BP 152/68
[2019-01-10 04:41] VITALS: BP 188/78
--- NOTE | 2019-01-10 06:00 | NUR ---
Patient resting quitly at this time.
[2019-01-10 08:15] VITALS: BP 193/85
[2019-01-10 08:28] VITALS: BP 193/85
[2019-01-10] MEDS: CEFDINIR 300 MG CAP PO SCH (08:28)
[2019-01-10 12:05] VITALS: BP 192/70
--- NOTE | 2019-01-10 13:42 | Diagnostic Imaging Report ---
History: Third nerve palsy, double vision Comparison studies: Head CT 01/09/2019. Technique: Sagittal and axial T2 FS, axial DWI, axial T2*GRE, axial T1 FLAIR and axial coronal T2 FLAIR. Intravenous contrast: None Findings: Scalp: Normal in signal. No masses. Bone marrow: Normal in signal intensity. Brain sulci: Mildly prominent. Ventricles: Moderate compensatory dilatation. No hydrocephalus. Extra axial spaces: No mass, no fluid collection. Parenchyma: No mass, acute hemorrhage or acute ischemia. Scattered and confluent T2 FLAIR hyperintense tense signal changes in the supratentorial white matter are nonspecific most compatible chronic microvascular ischemic changes. There are chronic hemorrhagic lacunar insults in the right putamen and right subinsular region were there are foci of decreased signal on the T2*GRE sequence. Suprasellar region: No abnormalities. Craniocervical junction: Patent foramen magnum. No Chiari malformation. Vessels: Normal flow-voids in the arteries and sinuses. IMPRESSION: 1. No acute ischemia or other acute intracranial abnormalities. 2. Moderate generalized cerebral volume loss. 3. 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 Signed by: Dr. Martin Garnett M.D. on 01/10/2019 1:39 PM
== END 2019-01-10 17:22 | disposition home or self-care (01) ==
LOC: ER 14:19 → ERHOLD 20:21 → IMCU 21:24
DX: H49.02 Third [oculomotor] nerve palsy, left eye (principal); E78.5 Hyperlipidemia, unspecified; Z85.118 Personal history of other malignant neoplasm of bronchus and lung; Z88.5 Allergy status to narcotic agent; Z82.49 Family history of ischemic heart disease and other diseases of the circulatory system; E83.41 Hypermagnesemia; N30.00 Acute cystitis without hematuria
CPT/HCPCS: 36415; 70450; 70551; 71045; 80053; 81001; 82550; 82553; 83735; 83880; 84484; 85025; 85610; 85730; 93005; 99284; G0378 ×2; J0360

== ENCOUNTER → 2019-02-11 | Day surgery (SDC) | payer MEDICARE, OTHER ==
[~2019-02-11] MED LIST changes: +ACETAMINOPHEN 325 MG TAB ONE; +CYMBALTA20 MG PO; +FENTANYL CITRATE/PF 100MCG/2 ML INJ ONE; +HYDRALAZINE HCL 20 MG/ML VIAL ONE; +LABETALOL HCL 5 MG/ML 20ML VIAL ONE; +LASIX20 MG PO; +LEVOTHYROXINE25 MCG PO; +LIPITOR20 MG PO; +MIDAZOLAM HCL 2 MG/2 ML VIAL ONE; +OR PHACO EYE KIT ONE; +PREOP PHACO EYE KIT ONE
--- OUTSIDE RECORDS SUMMARY | 2019-02-11 08:54 | XMS REPORT | Clinical Summary ---
Author Author [facility] Address Unknown Phone Unavailable Care Team Providers Care Parking Manager Name Role Phone Hank Martin MD PCP [...] INFLUENZA VACCINE 04/24/2019 Results Not on fileafter 02/10/2018 Insurance Type Payer Benefit Subscriber ID Effective Phone Address Plan / Dates Group Medicare MEDICARE MEDICARE xxxxxxxxxx [id number] [place], PART [place] AND [place] B PPO HUMANA HUMANA xxxxxxxxx [id number] CHOICE resent CARE PPO Advance Directives Patient has advance care planning documents on file. For more information, sandra reed contact: Aron Li [address] [place] [address]
[2019-02-11 12:39] VITALS: BP 160/61
== END | disposition home or self-care (01) ==
LOC: OR 08:42
PROVIDERS: ATTEND Ophthalmology
DX: H25.11 Age-related nuclear cataract, right eye (principal); I10 Essential (primary) hypertension; E03.9 Hypothyroidism, unspecified; Z88.6 Allergy status to analgesic agent
CPT/HCPCS: 66984; J0360; J2250; J3490; V2632

== ENCOUNTER 2020-11-10 15:17 | Inpatient (IN) | payer MEDICARE, OTHER ==
[~2020-11-10] VITALS: Ht 172.7 cm; Wt 94.9 kg
[~2020-11-10 15:17] MED LIST changes: -ACETAMINOPHEN 325 MG TAB ONE; +ETOMIDATE 2 MG/ML 10 ML INJ IV ONE; -FENTANYL CITRATE/PF 100MCG/2 ML INJ ONE; -HYDRALAZINE HCL 20 MG/ML VIAL ONE; -LABETALOL HCL 5 MG/ML 20ML VIAL ONE; -MIDAZOLAM HCL 2 MG/2 ML VIAL ONE; -OR PHACO EYE KIT ONE; -PREOP PHACO EYE KIT ONE; +SUCCINYLCHOLINE CHLORIDE 20 MG/ML 10ML VIAL ONE; +VECURONIUM BROMIDE FOR INJ 20 MG VIAL ONE; +WATER STERILE 10 ML VIAL ONE
[2020-11-10] MEDS ORDERED: KETOROLAC TROMETHAMINE 30 MG/ML VIAL IV STA (15:54)
[2020-11-10] MEDS ORDERED: PIPER-TAZ 3.375 GM 50 ML IV ONE (16:00)
[2020-11-10] MEDS ORDERED: FUROSEMIDE INJ 10 MG/ML 4 ML VIAL IV ONE (16:45)
[2020-11-10] MEDS ORDERED: KETOROLAC TROMETHAMINE 30 MG/ML VIAL ONE (17:30)
[2020-11-10] MEDS ORDERED: PIPER-TAZ 3.375 GM 50 ML ONE (17:30)
[2020-11-10] MEDS ORDERED: FUROSEMIDE INJ 10 MG/ML 4 ML VIAL ONE (17:31)
[2020-11-10] MEDS ORDERED: ASPIRIN 81 MG CHEW TAB PO ONE (17:45)
[2020-11-10 21:10] VITALS: BP 132/60
[2020-11-10] MEDS: SODIUM CHLORIDE FLUSH 10 ML SYR INJ PRN (21:45)
[2020-11-10] MEDS: FUROSEMIDE INJ 10 MG/ML 4 ML VIAL IV SCH (21:50)
[2020-11-11] VITALS (11 sets, daily range): BP systolic 105–166; BP diastolic 55–75
[2020-11-11] MEDS ORDERED: LEVOTHYROXINE50 MCG PO (00:15)
[2020-11-11] MEDS ORDERED: POTASSIUM CHLO10 ME1 PO (00:15)
[2020-11-11] MEDS ORDERED: FISH OIL 1,2001 EACH (00:15)
[2020-11-11] MEDS ORDERED: ONE DAILY WOME1 EACH (00:15)
[2020-11-11] MEDS ORDERED: AMLODIPINE BESY10 MG PO (00:15)
[2020-11-11] MEDS ORDERED: FUROSEMIDE40 MG PO (00:15)
[2020-11-11] MEDS ORDERED: CYMBALTA30 MG (00:15)
[2020-11-11 06:34] LABS: BASOPHILS % 0.5 % (0.0-1.0); EOSINOPHILS # (AUTO) 0.1 (0.0-0.4); EOSINOPHILS % 1.1 % (0.0-6.0); HEMATOCRIT 37.8 % (34.2-44.1); HEMOGLOBIN 11.5 g/dL (12.0-16.0); LYMPHOCYTES # (AUTO) 1.1 (1.0-3.2); LYMPHOCYTES % 12.3 % (18.0-39.1); MEAN CORPUSCULAR HEMOGLOBIN 30.2 pg (28-32); MEAN CORPUSCULAR HGB CONC 30.4 g/dL (31-35); MEAN CORPUSCULAR VOLUME 99.2 fL (81-99); MONOCYTES # (AUTO) 1.3 (0.2-0.8); MONOCYTES % 14.6 % (4.4-11.3); NEUTROPHILS # (AUTO) 6.1 (2.1-6.9); NEUTROPHILS % 71.4 % (38.7-80.0); PLATELET COUNT 221 x10e3/uL (140-360); RED BLOOD COUNT 3.81 x10e6/uL (3.6-5.1); RED CELL DISTRIBUTION WIDTH 14.5 % (11.7-14.4)
[2020-11-11 06:47] LABS: ALANINE AMINOTRANSFERASE 11 IU/L (0-55); ALBUMIN 3.5 g/dL (3.5-5.0); ALBUMIN/GLOBULIN RATIO 1.2 (0.8-2.0); ALKALINE PHOSPHATASE 100 IU/L (40-150); ANION GAP 13.7 mmol/L (8-16); BLOOD UREA NITROGEN 17 mg/dL (7-26); BUN/CREATININE RATIO 24 (6-25); CALCIUM 8.7 mg/dL (8.4-10.2); CARBON DIOXIDE 39 mmol/L (22-29); CHLORIDE 94 mmol/L (98-107); EST GLOMERULAR FILTRATION RATE > 60 ML/MIN (60-); GLUCOSE 102 mg/dL (74-118); POTASSIUM 3.7 mmol/L (3.5-5.1); SODIUM 143 mmol/L (136-145)
[2020-11-11 07:11] LABS: CREATINE KINASE MB 2.3 ng/mL (0-5.0)
[2020-11-11] MEDS: FUROSEMIDE INJ 10 MG/ML 4 ML VIAL IV SCH ×2 (09:00→20:37)
[2020-11-11 12:03] LABS: ABG HCO3 103 mmol/L (22-26); ABG PCO2 100 mmHg (35-45); ABG PH 7.28 (7.35-7.45); ABG PO2 102 mmHg (80-105); ABG TCO2 50
[2020-11-11] MEDS ORDERED: ACETAZOLAMIDE SODIUM 500 MG/VIAL IV ONE (13:30)
[2020-11-11] MEDS ORDERED: ACETAZOLAMIDE 250 MG TAB PO ONE (15:00)
[2020-11-11 15:12] LABS: ABG HCO3 48 mmol/L (22-26); ABG PCO2 98 mmHg (35-45); ABG PH 7.29 (7.35-7.45); ABG PO2 132 mmHg (80-105); ABG TCO2 50
[2020-11-11 16:38] LABS: CREATINE KINASE MB 1.6 ng/mL (0-5.0)
[2020-11-11 17:09] LABS: ABG PH 7.29 (7.35-7.45)
[2020-11-11 17:10] LABS: ABG HCO3 134 mmol/L (22-26); ABG PCO2 102 mmHg (35-45); ABG PO2 128 mmHg (80-105); ABG TCO2 50
[2020-11-11] MEDS: HYDRALAZINE HCL 20 MG/ML VIAL IV PRN (20:37)
[2020-11-11] MEDS: ATORVASTATIN 20 MG TAB PO SCH (20:58)
[2020-11-11] MEDS: SODIUM CHLORIDE FLUSH 10 ML SYR INJ PRN (20:58)
[2020-11-12] VITALS (19 sets, daily range): BP systolic 91–159; BP diastolic 43–118
[2020-11-12] MEDS: LEVOTHYROXINE SODIUM 50 MCG TAB PO SCH (06:00)
[2020-11-12 07:57] LABS: ABG PH 7.26 (7.35-7.45)
[2020-11-12 07:58] LABS: ABG HCO3 46 mmol/L (22-26); ABG PCO2 100 mmHg (35-45); ABG PO2 132 mmHg (80-105); ABG TCO2 49
[2020-11-12] MEDS: FUROSEMIDE INJ 10 MG/ML 4 ML VIAL IV SCH ×2 (08:39→21:13)
[2020-11-12] MEDS ORDERED: MIDAZOLAM HCL 2 MG/2 ML VIAL ONE (11:53)
[2020-11-12] MEDS: FENTANYL 2000MCG/NS 250 250 ML IV SCH (12:00)
[2020-11-12] MEDS: MIDAZOLAM HCL 5MG/ML 10ML VIAL 100 ML IV PRN ×2 (12:15→17:03)
[2020-11-12] MEDS ORDERED: CEFEPIME HCL 1GM 1 GM in SODIUM CHLORIDE 0.9% 50ML 50 ML IV SCH (12:45)
[2020-11-12 12:48] LABS: BLOOD UREA NITROGEN 17 mg/dL (7-26); BUN/CREATININE RATIO 24 (6-25); CALCIUM 8.9 mg/dL (8.4-10.2); CHLORIDE 93 mmol/L (98-107); CREATININE, SERUM 0.72 mg/dL (0.57-1.11); EST GLOMERULAR FILTRATION RATE > 60 ML/MIN (60-); GLUCOSE 100 mg/dL (74-118); SODIUM 146 mmol/L (136-145)
[2020-11-12 13:06] LABS: CARBON DIOXIDE 41 mmol/L (22-29)
[2020-11-12 15:14] LABS: ABG HCO3 40 mmol/L (22-26); ABG PCO2 45 mmHg (35-45); ABG PH 7.56 (7.35-7.45); ABG PO2 115 mmHg (80-105); ABG TCO2 41
[2020-11-12] MEDS: CEFEPIME HCL 1GM 1 GM in SODIUM CHLORIDE 0.9% 50ML 50 ML IV SCH (16:31)
[2020-11-12] MEDS: DEXMEDETOMIDINE 200MCG/NS 50ML 50 ML IV SCH (17:00)
[2020-11-12] MEDS ORDERED: POTASSIUM CHLORIDE 20MEQ/100ML 200 ML IV ONE ×2 (17:00→18:00)
[2020-11-12] MEDS ORDERED: KCL 20 MEQ PACKET/ ORAL SOLN NG ONE (17:30)
[2020-11-12] MEDS ORDERED: POTASSIUM CHLORIDE 10MEQ EA PO ONE (18:00)
[2020-11-12] MEDS ORDERED: POTASSIUM CHLORIDE 20MEQ/15ML UDC NG ONE (18:00)
[2020-11-12] MEDS ORDERED: ACETAZOLAMIDE SODIUM 500 MG/VIAL IV ONE (18:00)
[2020-11-12] MEDS: ATORVASTATIN 20 MG TAB PO SCH (21:13)
[2020-11-12] MEDS: ACETAMINOPHEN 325 MG/10 ML UDC NG PRN (22:34)
[2020-11-13] VITALS (27 sets, daily range): BP systolic 73–127; BP diastolic 35–91
[2020-11-13] MEDS: DEXMEDETOMIDINE 200MCG/NS 50ML 50 ML IV SCH ×3 (02:50→20:51)
[2020-11-13] MEDS: CEFEPIME HCL 1GM 1 GM in SODIUM CHLORIDE 0.9% 50ML 50 ML IV SCH ×2 (03:45→17:09)
[2020-11-13] MEDS: LEVOTHYROXINE SODIUM 50 MCG TAB PO SCH (06:00)
[2020-11-13] MEDS: FUROSEMIDE INJ 10 MG/ML 4 ML VIAL IV SCH (09:09)
[2020-11-13 09:28] LABS: BASOPHILS % 0.4 % (0.0-1.0); EOSINOPHILS # (AUTO) 0.1 (0.0-0.4); EOSINOPHILS % 0.5 % (0.0-6.0); HEMATOCRIT 35.8 % (34.2-44.1); HEMOGLOBIN 11.2 g/dL (12.0-16.0); LYMPHOCYTES # (AUTO) 1.2 (1.0-3.2); LYMPHOCYTES % 11.5 % (18.0-39.1); MEAN CORPUSCULAR HEMOGLOBIN 30.5 pg (28-32); MEAN CORPUSCULAR HGB CONC 31.3 g/dL (31-35); MEAN CORPUSCULAR VOLUME 97.5 fL (81-99); MONOCYTES # (AUTO) 1.9 (0.2-0.8); MONOCYTES % 17.9 % (4.4-11.3); NEUTROPHILS # (AUTO) 7.3 (2.1-6.9); NEUTROPHILS % 69.4 % (38.7-80.0); PLATELET COUNT 172 x10e3/uL (140-360); RED BLOOD COUNT 3.67 x10e6/uL (3.6-5.1); RED CELL DISTRIBUTION WIDTH 14.5 % (11.7-14.4)
[2020-11-13 09:41] LABS: ANION GAP 12.8 mmol/L (8-16); CALCIUM 9.1 mg/dL (8.4-10.2); CREATININE, SERUM 1.98 mg/dL (0.57-1.11)
[2020-11-13 09:44] LABS: POTASSIUM 2.8 mmol/L (3.5-5.1)
[2020-11-13] MEDS ORDERED: POTASSIUM CHLORIDE 20MEQ/100ML 200 ML IV ONE (11:15)
[2020-11-13] MEDS: FENTANYL 2000MCG/NS 250 250 ML IV SCH (11:30)
[2020-11-13] MEDS ORDERED: POTASSIUM CHLORIDE 20 MEQ TAB CR PO NR (11:45)
[2020-11-13] MEDS ORDERED: POTASSIUM CHLORIDE 20MEQ/100ML 100 ML ONE (12:13)
[2020-11-13] MEDS ORDERED: POTASSIUM CHLORIDE 20 MEQ TAB CR PO ONE ×2 (12:14→12:15)
[2020-11-13] MEDS ORDERED: ACETAZOLAMIDE 250 MG TAB PO SCH (14:15)
[2020-11-13] MEDS ORDERED: SODIUM CHLORIDE 0.9% 250ML 250 ML IV ONE (14:30)
[2020-11-13 15:30] LABS: ABG HCO3 35 mmol/L (22-26); ABG PCO2 39 mmHg (35-45); ABG PH 7.56 (7.35-7.45); ABG PO2 72 mmHg (80-105)
[2020-11-13] MEDS ORDERED: ACETAZOLAMIDE 250 MG TAB PO NR (15:30)
[2020-11-13 15:31] LABS: ABG TCO2 36
[2020-11-13] MEDS ORDERED: POTASSIUM CHLORIDE 10MEQ EA PO NR (16:00)
[2020-11-13] MEDS: ATORVASTATIN 20 MG TAB PO SCH (21:23)
[2020-11-14] VITALS (23 sets, daily range): BP systolic 104–156; BP diastolic 49–80
[2020-11-14] MEDS: CEFEPIME HCL 1GM 1 GM in SODIUM CHLORIDE 0.9% 50ML 50 ML IV SCH ×2 (04:03→15:05)
[2020-11-14 04:56] LABS: BASOPHILS % 0.3 % (0.0-1.0); EOSINOPHILS # (AUTO) 0.1 (0.0-0.4); EOSINOPHILS % 0.9 % (0.0-6.0); HEMATOCRIT 34.8 % (34.2-44.1); HEMOGLOBIN 11.1 g/dL (12.0-16.0); LYMPHOCYTES % 10.4 % (18.0-39.1); MEAN CORPUSCULAR HEMOGLOBIN 30.2 pg (28-32); MEAN CORPUSCULAR HGB CONC 31.9 g/dL (31-35); MEAN CORPUSCULAR VOLUME 94.8 fL (81-99); MONOCYTES # (AUTO) 1.5 (0.2-0.8); MONOCYTES % 15.5 % (4.4-11.3); NEUTROPHILS % 72.5 % (38.7-80.0); PLATELET COUNT 160 x10e3/uL (140-360); RED BLOOD COUNT 3.67 x10e6/uL (3.6-5.1); RED CELL DISTRIBUTION WIDTH 14.8 % (11.7-14.4)
[2020-11-14 05:53] LABS: ALBUMIN 2.6 g/dL (3.5-5.0); ALBUMIN/GLOBULIN RATIO 0.9 (0.8-2.0); ANION GAP 16.1 mmol/L (8-16); CALCIUM 8.9 mg/dL (8.4-10.2); CREATININE, SERUM 1.27 mg/dL (0.57-1.11); MAGNESIUM 2.3 MG/DL (1.3-2.1); POTASSIUM 3.1 mmol/L (3.5-5.1)
[2020-11-14] MEDS: LEVOTHYROXINE SODIUM 50 MCG TAB PO SCH (06:00)
[2020-11-14 06:52] LABS: CALCIUM IONIZED 1.2 mmol/L (1.09-1.30)
[2020-11-14] MEDS ORDERED: POTASSIUM CHLORIDE 20MEQ/100ML 200 ML IV ONE (08:30)
[2020-11-14] MEDS ORDERED: POTASSIUM CHLORIDE 20MEQ/15ML UDC NG ONE (08:30)
[2020-11-14] MEDS: DEXMEDETOMIDINE 200MCG/NS 50ML 50 ML IV SCH ×2 (08:40→11:50)
[2020-11-14] MEDS ORDERED: FUROSEMIDE INJ 10 MG/ML 4 ML VIAL IV SCH (09:00)
[2020-11-14] MEDS ORDERED: POTASSIUM CHLORIDE 10MEQ/100ML 400 ML IV ONE (10:00)
[2020-11-14] MEDS ORDERED: KCL 20 MEQ PACKET/ ORAL SOLN PO ONE (10:15)
[2020-11-14] MEDS ORDERED: FUROSEMIDE INJ 10 MG/ML 4 ML VIAL IV NR (12:00)
[2020-11-14] MEDS ORDERED: DEXAMETHASONE SOD PHOS 10 MG/1 ML VIAL IV ONE (13:45)
[2020-11-14] MEDS ORDERED: ACETAZOLAMIDE 250 MG TAB PO ONE (14:05)
[2020-11-14 19:41] LABS: ANION GAP 15.1 mmol/L (8-16)
[2020-11-14 19:43] LABS: POTASSIUM 4.1 mmol/L (3.5-5.1)
[2020-11-14] MEDS: ATORVASTATIN 20 MG TAB PO SCH (23:33)
[2020-11-15] VITALS (22 sets, daily range): BP systolic 120–167; BP diastolic 53–100
[2020-11-15] MEDS: CEFEPIME HCL 1GM 1 GM in SODIUM CHLORIDE 0.9% 50ML 50 ML IV SCH ×2 (04:55→15:50)
[2020-11-15] MEDS: LEVOTHYROXINE SODIUM 50 MCG TAB PO SCH (04:55)
[2020-11-15 05:10] LABS: BASOPHILS % 0.2 % (0.0-1.0); HEMATOCRIT 36.2 % (34.2-44.1); HEMOGLOBIN 11.2 g/dL (12.0-16.0); LYMPHOCYTES # (AUTO) 0.4 (1.0-3.2); LYMPHOCYTES % 4.4 % (18.0-39.1); MEAN CORPUSCULAR HGB CONC 30.9 g/dL (31-35); MEAN CORPUSCULAR VOLUME 97.1 fL (81-99); MONOCYTES # (AUTO) 0.3 (0.2-0.8); MONOCYTES % 2.9 % (4.4-11.3); NEUTROPHILS # (AUTO) 9.1 (2.1-6.9); NEUTROPHILS % 92.3 % (38.7-80.0); PLATELET COUNT 161 x10e3/uL (140-360); RED BLOOD COUNT 3.73 x10e6/uL (3.6-5.1); RED CELL DISTRIBUTION WIDTH 14.6 % (11.7-14.4)
[2020-11-15 05:22] LABS: ALANINE AMINOTRANSFERASE 18 IU/L (0-55); ALBUMIN 2.9 g/dL (3.5-5.0); ALBUMIN/GLOBULIN RATIO 0.8 (0.8-2.0); ALKALINE PHOSPHATASE 82 IU/L (40-150); ANION GAP 15.7 mmol/L (8-16); BLOOD UREA NITROGEN 36 mg/dL (7-26); BUN/CREATININE RATIO 42 (6-25); CALCIUM 9.1 mg/dL (8.4-10.2); CARBON DIOXIDE 29 mmol/L (22-29); CHLORIDE 107 mmol/L (98-107); CREATININE, SERUM 0.86 mg/dL (0.57-1.11); EST GLOMERULAR FILTRATION RATE > 60 ML/MIN (60-); GLUCOSE 145 mg/dL (74-118); POTASSIUM 3.7 mmol/L (3.5-5.1); SODIUM 148 mmol/L (136-145)
[2020-11-15] MEDS: HYDRALAZINE HCL 20 MG/ML VIAL IV PRN (05:48)
[2020-11-15] MEDS: ATORVASTATIN 20 MG TAB PO SCH (20:14)
[2020-11-16] VITALS (24 sets, daily range): BP systolic 100–161; BP diastolic 49–116
[2020-11-16] MEDS: HYDRALAZINE HCL 20 MG/ML VIAL IV PRN (01:09)
[2020-11-16] MEDS: CEFEPIME HCL 1GM 1 GM in SODIUM CHLORIDE 0.9% 50ML 50 ML IV SCH ×2 (05:03→15:12)
[2020-11-16] MEDS: LEVOTHYROXINE SODIUM 50 MCG TAB PO SCH (05:49)
[2020-11-16] MEDS: IPRATROPIUM BROMIDE 0.02% 2.5 ML NEB NEB SCH ×3 (11:00→19:45)
[2020-11-16] MEDS ORDERED: FUROSEMIDE INJ 10 MG/ML 2 ML VIAL IV ONE (11:45)
[2020-11-16] MEDS ORDERED: ACETAZOLAMIDE 250 MG TAB PO ONE ×2 (11:45→15:15)
[2020-11-16] MEDS ORDERED: FUROSEMIDE INJ 10 MG/ML 4 ML VIAL ONE (15:02)
[2020-11-16] MEDS ORDERED: FUROSEMIDE INJ 10 MG/ML 2 ML VIAL ONE (15:06)
[2020-11-16] MEDS: ATORVASTATIN 20 MG TAB PO SCH (21:16)
[2020-11-17] VITALS (23 sets, daily range): BP systolic 100–152; BP diastolic 42–97
[2020-11-17] MEDS: IPRATROPIUM BROMIDE 0.02% 2.5 ML NEB NEB SCH ×4 (02:20→19:30)
[2020-11-17 04:50] LABS: BASOPHILS % 0.3 % (0.0-1.0); EOSINOPHILS # (AUTO) 0.2 (0.0-0.4); EOSINOPHILS % 1.6 % (0.0-6.0); HEMATOCRIT 33.8 % (34.2-44.1); HEMOGLOBIN 10.3 g/dL (12.0-16.0); LYMPHOCYTES # (AUTO) 1.2 (1.0-3.2); LYMPHOCYTES % 12.4 % (18.0-39.1); MEAN CORPUSCULAR HGB CONC 30.5 g/dL (31-35); MEAN CORPUSCULAR VOLUME 98.5 fL (81-99); MONOCYTES # (AUTO) 1.5 (0.2-0.8); NEUTROPHILS # (AUTO) 7.1 (2.1-6.9); NEUTROPHILS % 70.5 % (38.7-80.0); PLATELET COUNT 154 x10e3/uL (140-360); RED BLOOD COUNT 3.43 x10e6/uL (3.6-5.1); RED CELL DISTRIBUTION WIDTH 14.5 % (11.7-14.4)
[2020-11-17] MEDS: CEFEPIME HCL 1GM 1 GM in SODIUM CHLORIDE 0.9% 50ML 50 ML IV SCH (04:59)
[2020-11-17 05:16] LABS: ANION GAP 11.2 mmol/L (8-16); BLOOD UREA NITROGEN 22 mg/dL (7-26); BUN/CREATININE RATIO 30 (6-25); CALCIUM 8.5 mg/dL (8.4-10.2); CARBON DIOXIDE 31 mmol/L (22-29); CHLORIDE 107 mmol/L (98-107); CREATININE, SERUM 0.74 mg/dL (0.57-1.11); EST GLOMERULAR FILTRATION RATE > 60 ML/MIN (60-); GLUCOSE 133 mg/dL (74-118); POTASSIUM 3.2 mmol/L (3.5-5.1); SODIUM 146 mmol/L (136-145)
[2020-11-17] MEDS: LEVOTHYROXINE SODIUM 50 MCG TAB PO SCH (06:17)
[2020-11-17] MEDS: FUROSEMIDE 20 MG TAB PO SCH (09:21)
[2020-11-17] MEDS: ATORVASTATIN 20 MG TAB PO SCH (22:15)
[2020-11-18] VITALS (20 sets, daily range): BP systolic 117–174; BP diastolic 46–106
[2020-11-18] MEDS: IPRATROPIUM BROMIDE 0.02% 2.5 ML NEB NEB SCH ×3 (00:30→19:40)
[2020-11-18] MEDS: LEVOTHYROXINE SODIUM 50 MCG TAB PO SCH (06:41)
[2020-11-18] MEDS: FUROSEMIDE 20 MG TAB PO SCH (09:22)
[2020-11-18] MEDS: CEFEPIME HCL 1GM 1 GM in SODIUM CHLORIDE 0.9% 50ML 50 ML IV SCH (11:57)
[2020-11-18] MEDS ORDERED: POTASSIUM CHLORIDE 20 MEQ TAB CR PO ONE (13:15)
[2020-11-18 14:19] LABS: COLOR,URINE YELLOW (YELLOW)
[2020-11-18 14:20] LABS: CLARITY,URINE SL CLOUDY (CLEAR); KETONES,URINE TRACE (NEGATIVE); LEUKOCYTE ESTERASE ,URINE SMALL (NEGATIVE); NITRITE,URINE NEGATIVE (NEGATIVE); PROTEIN,URINE DIPSTICK 2+ (NEGATIVE); URINE UROBILINOGEN 1 mg/dL (0.2 - 1)
[2020-11-18 14:32] LABS: BACTERIA,URINE FEW /HPF; EPITHELIAL CELLS,URINE FEW /LPF; RBC,URINE >50 /HPF (0-5)
[2020-11-19] VITALS (21 sets, daily range): BP systolic 116–158; BP diastolic 48–114
[2020-11-19] MEDS: ATORVASTATIN 20 MG TAB PO SCH ×2 (02:51→19:28)
[2020-11-19] MEDS: IPRATROPIUM BROMIDE 0.02% 2.5 ML NEB NEB SCH ×5 (03:35→23:50)
[2020-11-19] MEDS: LEVOTHYROXINE SODIUM 50 MCG TAB PO SCH (06:00)
[2020-11-19] MEDS: FUROSEMIDE 20 MG TAB PO SCH (08:13)
[2020-11-19] MEDS: POTASSIUM CHLORIDE 10MEQ EA PO SCH (08:13)
[2020-11-19 13:06] LABS: ABG HCO3 32 mmol/L (22-26); ABG PCO2 50 mmHg (35-45); ABG PH 7.42 (7.35-7.45); ABG PO2 89 mmHg (80-105); ABG TCO2 34
[2020-11-19] MEDS: CEFEPIME HCL 1GM 1 GM in SODIUM CHLORIDE 0.9% 50ML 50 ML IV SCH (13:19)
[2020-11-20] VITALS (27 sets, daily range): BP systolic 74–150; BP diastolic 43–96
[2020-11-20] MEDS: LEVOTHYROXINE SODIUM 50 MCG TAB PO SCH (06:19)
[2020-11-20] MEDS: IPRATROPIUM BROMIDE 0.02% 2.5 ML NEB NEB SCH ×2 (08:32→15:35)
[2020-11-20] MEDS: POTASSIUM CHLORIDE 10MEQ EA PO SCH (08:58)
[2020-11-20] MEDS: FUROSEMIDE 20 MG TAB PO SCH (08:58)
[2020-11-20] MEDS ORDERED: POTASSIUM CHLORIDE 20 MEQ TAB CR PO PRN (10:15)
[2020-11-20] MEDS: CEFEPIME HCL 1GM 1 GM in SODIUM CHLORIDE 0.9% 50ML 50 ML IV SCH (14:04)
[2020-11-20 17:30] LABS: ANION GAP 10.8 mmol/L (8-16); BLOOD UREA NITROGEN 16 mg/dL (7-26); BUN/CREATININE RATIO 27 (6-25); CALCIUM 8.4 mg/dL (8.4-10.2); CARBON DIOXIDE 32 mmol/L (22-29); CHLORIDE 105 mmol/L (98-107); EST GLOMERULAR FILTRATION RATE > 60 ML/MIN (60-); GLUCOSE 107 mg/dL (74-118); POTASSIUM 3.8 mmol/L (3.5-5.1); SODIUM 144 mmol/L (136-145)
[2020-11-20] MEDS: ATORVASTATIN 20 MG TAB PO SCH (20:13)
[2020-11-21] VITALS (22 sets, daily range): BP systolic 18–168; BP diastolic 45–168
[2020-11-21] MEDS: IPRATROPIUM BROMIDE 0.02% 2.5 ML NEB NEB SCH ×4 (01:00→19:00)
[2020-11-21 05:41] LABS: BASOPHILS % 0.4 % (0.0-1.0); EOSINOPHILS # (AUTO) 0.2 (0.0-0.4); EOSINOPHILS % 2.4 % (0.0-6.0); HEMATOCRIT 33.4 % (34.2-44.1); HEMOGLOBIN 10.2 g/dL (12.0-16.0); LYMPHOCYTES # (AUTO) 1.9 (1.0-3.2); LYMPHOCYTES % 18.9 % (18.0-39.1); MEAN CORPUSCULAR HGB CONC 30.5 g/dL (31-35); MEAN CORPUSCULAR VOLUME 98.2 fL (81-99); MONOCYTES # (AUTO) 1.6 (0.2-0.8); MONOCYTES % 16.2 % (4.4-11.3); NEUTROPHILS # (AUTO) 6.1 (2.1-6.9); NEUTROPHILS % 61.8 % (38.7-80.0); PLATELET COUNT 173 x10e3/uL (140-360); RED CELL DISTRIBUTION WIDTH 13.8 % (11.7-14.4)
[2020-11-21] MEDS: LEVOTHYROXINE SODIUM 50 MCG TAB PO SCH (05:54)
[2020-11-21 06:06] LABS: ANION GAP 15.9 mmol/L (8-16); BLOOD UREA NITROGEN 19 mg/dL (7-26); BUN/CREATININE RATIO 30 (6-25); CALCIUM 8.5 mg/dL (8.4-10.2); CARBON DIOXIDE 29 mmol/L (22-29); CHLORIDE 105 mmol/L (98-107); CREATININE, SERUM 0.64 mg/dL (0.57-1.11); EST GLOMERULAR FILTRATION RATE > 60 ML/MIN (60-); GLUCOSE 116 mg/dL (74-118); POTASSIUM 3.9 mmol/L (3.5-5.1); SODIUM 146 mmol/L (136-145)
[2020-11-21] MEDS: FUROSEMIDE 20 MG TAB PO SCH (09:18)
[2020-11-21] MEDS: POTASSIUM CHLORIDE 10MEQ EA PO SCH (09:18)
[2020-11-21] MEDS: ACETAMINOPHEN 325 MG/10 ML UDC NG PRN ×2 (11:09→19:49)
[2020-11-21] MEDS: CEFEPIME HCL 1GM 1 GM in SODIUM CHLORIDE 0.9% 50ML 50 ML IV SCH (12:10)
[2020-11-21] MEDS ORDERED: QUETIAPINE FUMARATE 25 MG TAB PO PRN ×2 (12:15→12:45)
[2020-11-21] MEDS: RISPERIDONE 0.5 MG TAB PO PRN ×2 (13:31→21:02)
[2020-11-21] MEDS: SODIUM CHLORIDE FLUSH 10 ML SYR INJ PRN (13:37)
[2020-11-21] MEDS ORDERED: HALOPERIDOL LACTATE 5 MG/ML VIAL IV PRN (16:00)
[2020-11-21] MEDS: ATORVASTATIN 20 MG TAB PO SCH (19:49)
[2020-11-21] MEDS ORDERED: TRAZODONE HCL 50 MG TAB PO SCH (21:00)
[2020-11-22] VITALS (15 sets, daily range): BP systolic 116–172; BP diastolic 43–111
[2020-11-22] MEDS: IPRATROPIUM BROMIDE 0.02% 2.5 ML NEB NEB SCH ×5 (01:00→23:55)
[2020-11-22] MEDS: LEVOTHYROXINE SODIUM 50 MCG TAB PO SCH (05:26)
[2020-11-22] MEDS: POTASSIUM CHLORIDE 10MEQ EA PO SCH (08:23)
[2020-11-22] MEDS: FUROSEMIDE 20 MG TAB PO SCH (08:23)
[2020-11-22] MEDS: CEFEPIME HCL 1GM 1 GM in SODIUM CHLORIDE 0.9% 50ML 50 ML IV SCH (11:31)
[2020-11-22] MEDS ORDERED: RISPERIDONE 0.5 MG TAB PO PRN (12:30)
[2020-11-22] MEDS ORDERED: SODIUM CHLORIDE 0.9% 50ML 50 ML ONE (13:56)
[2020-11-22] MEDS ORDERED: RISPERIDONE 0.5 MG TAB PO SCH (21:00)
[2020-11-22] MEDS: OLANZAPINE 5 MG TAB PO SCH (21:23)
[2020-11-22] MEDS: ATORVASTATIN 20 MG TAB PO SCH (21:23)
[2020-11-22] MEDS: TRAZODONE HCL 50 MG TAB PO PRN (21:23)
[2020-11-23] VITALS (8 sets, daily range): BP systolic 92–145; BP diastolic 42–81
[2020-11-23] MEDS: LEVOTHYROXINE SODIUM 50 MCG TAB PO SCH (05:17)
[2020-11-23 05:59] LABS: BASOPHILS # (AUTO) 0.1 (0.0-0.1); BASOPHILS % 0.6 % (0.0-1.0); EOSINOPHILS # (AUTO) 0.2 (0.0-0.4); EOSINOPHILS % 2.2 % (0.0-6.0); HEMATOCRIT 34.3 % (34.2-44.1); HEMOGLOBIN 10.3 g/dL (12.0-16.0); LYMPHOCYTES # (AUTO) 1.8 (1.0-3.2); LYMPHOCYTES % 21.1 % (18.0-39.1); MEAN CORPUSCULAR HEMOGLOBIN 29.9 pg (28-32); MEAN CORPUSCULAR VOLUME 99.4 fL (81-99); MONOCYTES # (AUTO) 1.4 (0.2-0.8); NEUTROPHILS # (AUTO) 4.9 (2.1-6.9); NEUTROPHILS % 58.9 % (38.7-80.0); PLATELET COUNT 184 x10e3/uL (140-360); RED BLOOD COUNT 3.45 x10e6/uL (3.6-5.1); RED CELL DISTRIBUTION WIDTH 13.9 % (11.7-14.4)
[2020-11-23 06:39] LABS: ALANINE AMINOTRANSFERASE 27 IU/L (0-55); ALBUMIN 2.9 g/dL (3.5-5.0); ALBUMIN/GLOBULIN RATIO 0.9 (0.8-2.0); ALKALINE PHOSPHATASE 67 IU/L (40-150); BLOOD UREA NITROGEN 17 mg/dL (7-26); BUN/CREATININE RATIO 27 (6-25); CALCIUM 8.9 mg/dL (8.4-10.2); CARBON DIOXIDE 31 mmol/L (22-29); CHLORIDE 106 mmol/L (98-107); CREATININE, SERUM 0.63 mg/dL (0.57-1.11); EST GLOMERULAR FILTRATION RATE > 60 ML/MIN (60-); GLUCOSE 102 mg/dL (74-118); SODIUM 147 mmol/L (136-145)
[2020-11-23] MEDS: IPRATROPIUM BROMIDE 0.02% 2.5 ML NEB NEB SCH ×3 (07:00→19:50)
[2020-11-23] MEDS: FUROSEMIDE 20 MG TAB PO SCH (08:41)
[2020-11-23] MEDS: POTASSIUM CHLORIDE 10MEQ EA PO SCH (08:42)
[2020-11-23] MEDS: OLANZAPINE 5 MG TAB PO PRN (09:11)
[2020-11-23] MEDS: CEFEPIME HCL 1GM 1 GM in SODIUM CHLORIDE 0.9% 50ML 50 ML IV SCH (12:01)
[2020-11-23] MEDS ORDERED: SODIUM CHLORIDE 0.9% 50ML 50 ML ONE (12:09)
[2020-11-23] MEDS ORDERED: CEFEPIME HCL 1 GM VIAL ONE (12:09)
[2020-11-23] MEDS: ATORVASTATIN 20 MG TAB PO SCH (21:00)
[2020-11-23] MEDS: OLANZAPINE 5 MG TAB PO SCH (21:00)
[2020-11-23] MEDS: TRAZODONE HCL 50 MG TAB PO PRN (21:00)
[2020-11-24] MEDS: IPRATROPIUM BROMIDE 0.02% 2.5 ML NEB NEB SCH ×3 (00:50→13:11)
[2020-11-24] MEDS: OLANZAPINE 5 MG TAB PO PRN (02:29)
[2020-11-24] MEDS: ACETAMINOPHEN 325 MG/10 ML UDC NG PRN (02:29)
[2020-11-24 03:17] VITALS: BP 124/61
[2020-11-24] MEDS: LEVOTHYROXINE SODIUM 50 MCG TAB PO SCH (06:14)
[2020-11-24 07:23] VITALS: BP 130/81
[2020-11-24 07:26] VITALS: BP 130/81
[2020-11-24] MEDS: POTASSIUM CHLORIDE 10MEQ EA PO SCH (08:47)
[2020-11-24] MEDS: FUROSEMIDE 20 MG TAB PO SCH (08:47)
[2020-11-24 11:41] VITALS: BP 136/56
[2020-11-24 11:41] LABS: ABG HCO3 37 mmol/L (22-26); ABG PCO2 50 mmHg (35-45); ABG PH 7.48 (7.35-7.45); ABG PO2 82 mmHg (80-105); ABG TCO2 38
[2020-11-24] MEDS: CEFEPIME HCL 1GM 1 GM in SODIUM CHLORIDE 0.9% 50ML 50 ML IV SCH (11:45)
[2020-11-24] MEDS ORDERED: SODIUM CHLORIDE 0.9% 50ML 50 ML ONE (11:47)
[2020-11-24] MEDS ORDERED: CEFEPIME HCL 1 GM VIAL ONE (11:47)
[2020-11-24 16:00] VITALS: BP 122/57
[2020-11-24] MEDS ORDERED: OLANZAPINE 5 MG TAB PO SCH (21:00)
[2020-11-25] MEDS ORDERED: DONEPEZIL HCL 5 MG TAB PO SCH (09:00)
== END 2020-11-24 19:07 | DRG 208 ==
LOC: FSED 16:00 → ERHOLD 17:39 → MED/SURG2 20:51 → ICU 11-12 12:24 → MED/SURG2 11-22 11:57
PROVIDERS: ADMIT Internal Medicine; ATTEND Internal Medicine
PROC: 0BH17EZ Insertion of Endotracheal Airway into Trachea, Via Natural or Artificial Opening (ICD-10-PCS; principal; 2020-11-12)
PROC: 5A1945Z Respiratory Ventilation, 24-96 Consecutive Hours (ICD-10-PCS; 2020-11-12)
PROC: 02HV33Z Insertion of Infusion Device into Superior Vena Cava, Percutaneous Approach (ICD-10-PCS; 2020-11-12)
PROC: 05HY33Z Insertion of Infusion Device into Upper Vein, Percutaneous Approach (ICD-10-PCS; 2020-11-16)
DX: J96.02 Acute respiratory failure with hypercapnia (principal); J69.0 Pneumonitis due to inhalation of food and vomit; I50.33 Acute on chronic diastolic (congestive) heart failure; G93.40 Encephalopathy, unspecified; J44.1 Chronic obstructive pulmonary disease with (acute) exacerbation; N39.0 Urinary tract infection, site not specified; G93.1 Anoxic brain damage, not elsewhere classified; J70.0 Acute pulmonary manifestations due to radiation; N17.9 Acute kidney failure, unspecified; I11.0 Hypertensive heart disease with heart failure; J96.01 Acute respiratory failure with hypoxia; I27.20 Pulmonary hypertension, unspecified; F03.90 Unspecified dementia, unspecified severity, without behavioral disturbance, psychotic disturbance, mood disturbance, and anxiety; E87.5 Hyperkalemia; Z95.0 Presence of cardiac pacemaker; Z20.822 Contact with and (suspected) exposure to COVID-19; Z85.118 Personal history of other malignant neoplasm of bronchus and lung; E78.5 Hyperlipidemia, unspecified; F29 Unspecified psychosis not due to a substance or known physiological condition; I48.0 Paroxysmal atrial fibrillation; I49.5 Sick sinus syndrome; E87.6 Hypokalemia; G47.33 Obstructive sleep apnea (adult) (pediatric); Z66 Do not resuscitate
CPT/HCPCS: 31500; 36415; 36600; 70450; 71045; 74018; 74230; 74470; 80048; 80053; 81001; 81003; 82550; 82553; 82805; 82948; 83735; 83880; 84132; 84146; 84443; 84484; 85025; 87040; 87086; 93306; 94002; 94003; 94660; 95812; 96361; 96374; 96376; 97139; 99251; 99284; J0330; J0360; J0692; J1100; J1630; J1885; J1940; J2250; J2543; J3480; J7050; U0002